=== PATIENT | female | born 1975 | race Two or more races ===

== ENCOUNTER 2024-04-28 18:17 | Emergency (ER) | payer OTHER, SELFPAY ==
[2024-04-28 18:17] VITALS: BMI 30.2
[2024-04-28 18:18] VITALS: BP 160/109
[2024-04-28 18:35] LABS: Urine Albumin Negative (Neg - Trace); Urine Bilirubin Negative (Negative); Urine Character Clear (Clear); Urine Color Straw; Urine Glucose Negative (Negative); Urine Ketone Negative (Negative); Urine Leukocyte Trace (Negative); Urine Nitrite Negative (Negative); Urine Occult Blood 1+ (Negative); Urine Urobilinogen Negative (Neg - 1+)
[2024-04-28 18:43] LABS: % Basophils 0.4 % (0-2); % Eosinophils 1.4 % (0-6); % Immature Granulocytes 0.2 % (0-0.5); % Lymphocytes 26.4 % (20.5-51.1); % Monocytes 5.3 % (1.7-9.3); % Neutrophils 66.3 % (42.2-75.2); Absolute Eosinophils 0.1 10^3/uL (0-0.7); Absolute Lymphocytes 2.6 10^3/uL (1.2-3.4); Absolute Monocytes 0.5 10^3/uL (0.1-0.6); Absolute Neutrophils 6.6 10^3/uL (1.4-6.5); Hematocrit 40.3 % (37.0-47.0); Hemoglobin 13.8 g/dL (12.0-16.0); Mean Corp Hgb Conc. 34.2 g/dL (33.0-37.0); Mean Corpuscular Hgb 29.9 pg (27.0-31.0); Mean Corpuscular Volume 87.4 fL (81.0-99.0); Mean Platelet Volume 10.7 fL (7.4-10.4); Nucleated Red Blood Cells % 0 %; Platelet Count 293 10^3/uL (130-400); Red Blood Cell Count 4.61 10^6/uL (4.20-5.40); Red Cell Dist. Width 12.5 % (11.5-14.5); White Blood Cell Count 9.9 10^3/uL (4.8-10.8)
[2024-04-28 18:51] LABS: HCG, Serum Qualitative Screen Negative
[2024-04-28 18:54] LABS: ALT (SGPT) 18 U/L (0-35); AST (SGOT) 24 U/L (14-36); Albumin 4.9 g/dl (3.5-5.0); Alkaline Phosphatase 73 U/L (38-126); Blood Urea Nitrogen 14 mg/dl (7-17); Calcium 10.1 mg/dl (8.4-10.2); Carbon Dioxide 29 mmol/L (22-30); Chloride 102 mmol/L (98-107); Glucose 98 mg/dl (70-99); Lipase 118 U/L (23-300); Sodium 139 mmol/L (135-145); Total Bilirubin 0.6 mg/dl (0.2-1.3); Total Protein 7.8 g/dl (6.3-8.2); eGFR > 60.00
[2024-04-28 18:59] LABS: Urine Bacteria Moderate (Negative)
--- NOTE | 2024-04-28 19:42 | ED.GENMED ---
Addendum entered and electronically signed by RADHIKA Martínez 04/29/24 13:25:
Patient's came to the ER asking for prescription of prednisone. Patient was offered this last night but did not initially want to take it. Will send prescription to pharmacy. Discussed close outpatient follow-up family doctor and to
return if any worsening of send
Original Note:
History of Present Illness
General
Chief Complaint: Flank Pain
Source: patient
Exam Limitations: none
Time Seen by Provider: 04/28/24 19:13
Nursing documentation reviewed up to this point in time: agreed with
History of Present Illness
History of Present Illness:
Patient is a 49-year-old female who presents today for evaluation. Patient has had pain in the right back which radiates to her right groin shoots down her right leg and at times she feels that her right abdomen for the past 10 days. She denies
any associated nausea vomiting fever chills. Denies any urinary frequency urgency or dysuria. She denies any injury. She reports mostly happens when she stands up for long periods of time and walks around. It is also made worse when she fully
extends her back.
She denies any numbness tingling weakness lower extremities.
She has taken occasional Aleve.
She went to urgent care was sent here to the ER for evaluation.
Past History
Past History
ED Past Medical History: None
ED Past Surgical History: None
Social History
Tobacco: Non-smoker
Alcohol: None
Personal:
Living: with family
Review of Systems
Review of Systems
Allergies reviewed?: Yes
All Other Systems: ROS reviewed and negative except as documented in HPI and ROS
Constitutional: Reports no symptoms; Denies fever, fatigue or chills
EENT: Reports no symptoms
Respiratory: Reports no symptoms
Cardiac: Reports no symptoms
ABD/GI: Reports abdominal pain; Denies nausea, vomiting or diarrhea
: Reports flank pain (right sided back pain )
Musculoskeletal: Reports no symptoms
Skin: Reports no symptoms
Neurological: Reports no symptoms
Hematologic/Lymphatic: Reports no symptoms
Psychiatric: Reports no symptoms
Phy Exam
General Physical Exam
General Presentation: no apparent distress
General age: appears stated age
General Skin: warm and dry
General Habitus: normal
General Mental: alert
General Hydration: appears well hydrated
Cardiovascular Exam
Cardiovascular Exam: regular rate/rhythm, no murmur and normal peripheral pulses
Pulmonary Exam
Pulmonary Exam: lungs clear and no respiratory distress
Gastrointestinal Exam
Gastrointestinal Exam: non tender and soft
Neurological Exam
Neurological Exam: alert, oriented x3 and other (Intact sensation to bilateral extremities normal dorsiflexion plantar flexion)
Musculoskeletal Exam
Musculoskeletal Exam: full ROM and other (Normal inspection to back no bony midline tenderness no CVA tenderness no rash )
Skin Exam
Skin Exam: normal color and warm/dry
Psychiatric Exam
Psychiatric Exam: normal mood/affect
Course
Orders/Labs/Results
Orders:
Orders
04/28/24 18:23
Test Result ONCE
04/28/24 18:28
Complete Blood Count/With Diff Urgent
Comprehensive Metabolic Panel Urgent
HCG, Serum Qualitative Screen Urgent
Lipase Urgent
Urinalysis Reflex To Culture Urgent
Date Specimen was Collected: 04/28/24
Time Specimen was Collected: 18:23
Urine Microscopic Reflex Cult Urgent
Urine Culture Urgent
[facility]ELL Source: U
Specimen Description:
Date Specimen was Collected: 04/28/24
Time Specimen was Collected: 18:23
04/28/24 20:16
CT Abd/Pel (IV only)-DH only Urgent
Comment:
Reason For Exam: right back pain radiating to right lower abd
04/28/24 22:53
Ibuprofen [Motrin] 600 mg PO NOW STA
Abnormal Lab Results
04/28/24
18:28
MPV 10.7 H fL
(7.4-10.4)
Absolute Neuts (auto) 6.6 H 10^3/uL
(1.4-6.5)
Ur Occult Blood Reflex 1+ A
(Negative)
Leukocyte Esterase Rfl Trace A
(Negative)
Urine RBC 3-6 A /HPF
(0-2)
Urine Bacteria (Reflex) Moderate A
(Negative)
04/28/24 18:28
04/28/24 18:28
Vital Signs
Initial and Last Documented VS:
Initial Vital Signs
Temp Pulse Resp BP Pulse Ox
98.4 F 73 18 160/109 97
04/28/24 18:18 04/28/24 18:18 04/28/24 18:18 04/28/24 18:18 04/28/24 18:18
Last Documented Vital Signs
Temp Pulse Resp BP Pulse Ox
98.4 F 73 18 133/85 97
04/28/24 18:18 04/28/24 18:18 04/28/24 18:18 04/28/24 20:31 04/28/24 20:32
MDM/Problems Addressed
Differential Diagnosis Includes:
Not limited to lumbar sprain strain sciatica less likely renal colic less likely appendicitis
MDM/Problems Addressed:
Patient is a 49 old female who presents to the ER with complaints of low back pain that radiates to her right leg at times she feels discomfort in the right abdomen that she denies any associated nausea vomiting. Her appetite is good. She denies
any urinary frequency urgency or dysuria. Denies any hematuria. She presents awake alert no acute distress denies any loss of bowel or bladder. Denies any UTI symptoms. She is afebrile with normal white count stable labs. Abdomen soft nontender.
She was sent to the ER by urgent care for evaluation and workup for appendicitis. On exam however she is nontender in the right lower quadrant exam not consistent appendicitis the patient is concerned because she was alarmed by urgent care. CAT
scan was done with IV contrast to look not only her appendicitis but also for kidney stone both of which were negative.
With patient symptoms of right-sided back pain rating to right groin and right leg likely nerve, sciatica. Patient denies any trauma she has no neurological deficits.
Offered patient steroids however she did not like the way steroids made her feel in the past. Will DC with ibuprofen 600 milligrams every 8 hours with close outpatient follow-up family doctor
*Radiology
Radiology exam reviewed: radiology read reviewed
*Pulse Oximetry
Patient hypoxic: no
*Critical Care Note
Total Time (30-74mins, 75-104mins- exclusive of procedures): Not Applicable
ED Attending Note
-
Portions of this chart may have been created with voice recognition software.� Occasional wrong word or��sound alike� substitutions may have occurred due to the inherent limitations of voice recognition software.
Discharge Plan
Departure
Patient Disposition: Home (Routine Discharge)
Date of Disposition: 04/28/24
Time of Disposition: 22:55
Patient with high blood pressure during this ER visit?: Yes
Condition: Fair
Covid-19: Not Applicable
Discharge Problem:
Back pain, Sciatica
Instructions: Low Back Pain (DC), BLOOD PRESSURE
Prescriptions:
No Action
diclofenac sodium 75 MG tablet,delayed release (DR/EC)
75 mg PO BID Qty: 14 0RF
Referrals:
Amando Stringer DO [Family Provider] -
Activity Restrictions/Additional Instructions:
Ibuprofen 600 mg every 8 hours with food. Follow-up with family doctor next 1 days return if any worsening of symptoms. Avoid heavy lifting
Interventions
Interventions:
*Risk Screen - Suicide Last Done: 04/28/24 18:18
*General Assessment Last Done: 04/28/24 18:18
*Neglect/Abuse Screening Last Done: 04/28/24 18:18
Discharge Date and Time
Print Language: [place] CITIZ[place]
[2024-04-28 20:31] VITALS: BP 133/85
[2024-04-28 21:00] VITALS: BP 129/85
[2024-04-28] MEDS: MOTRIN 600 MG PO (23:05)
[2024-04-28 23:10] VITALS: BP 141/98
== END 2024-04-28 23:18 | disposition home or self-care (01) ==
LOC: EMR 18:17
PROVIDERS: Emergency Medicine; EMERGENCY PHYSICIAN Emergency Medicine; FAMILY PHYSICIAN Family Medicine
DX: M54.41 Lumbago with sciatica, right side (principal); R10.9 Unspecified abdominal pain; M79.604 Pain in right leg; R03.0 Elevated blood-pressure reading, without diagnosis of hypertension; Z88.0 Allergy status to penicillin
CPT/HCPCS: 99284; 74177; 80053; 81003; 81015; 83690; 84703; 85025; 87086; Q9967

== ENCOUNTER → 2024-05-11 13:21 | Outpatient (REF) | payer OTHER, SELFPAY | LOC: HWRAD 13:21 | PROVIDERS: ATTENDING PHYSICIAN Family Medicine | DX: E04.1 Nontoxic single thyroid nodule (principal); D25.1 Intramural leiomyoma of uterus | CPT/HCPCS: 72110; 72170; 76536 ==

== ENCOUNTER → 2025-03-06 13:24 | Outpatient (REF) | payer OTHER, SELFPAY | LOC: HWWDC 13:24 | PROVIDERS: ATTENDING PHYSICIAN Family Medicine; REFERRING PHYSICIAN Obstetrics & Gynecology | DX: Z12.31 Encounter for screening mammogram for malignant neoplasm of breast (principal); M25.50 Pain in unspecified joint | CPT/HCPCS: 72040; 72072; 73030; 73070; 77063; 77067 ==

== ENCOUNTER → 2025-07-31 13:05 | Outpatient (REF) | payer OTHER, SELFPAY | LOC: HWRAD 13:05 | PROVIDERS: ATTENDING PHYSICIAN Obstetrics & Gynecology; FAMILY PHYSICIAN Family Medicine | DX: D21.9 Benign neoplasm of connective and other soft tissue, unspecified (principal) | CPT/HCPCS: 76830; 76856 ==